=== PATIENT | female | born 1970 | race Caucasian/White ===

== ENCOUNTER → 2022-04-16 | Outpatient (CLI) | payer MEDICAID, SELFPAY ==
--- NOTE | 2022-04-16 16:43 | MRI_ITS ---
EXAM: MR LUMBAR SPINE WITHOUT INTRAVENOUS CONTRAST CLINICAL INDICATION: pain TECHNIQUE: Multiplanar and multisequence MR images of the lumbar spine without intravenous contrast. This report was created using [employer] report generation technology. COMPARISON: Lumbar spine radiographs March 29, 2022 FINDINGS: VERTEBRAE: Mild levoscoliosis of the lumbar spine again noted. Vertebral body heights are preserved. No spondylolisthesis. SPINAL CORD: Unremarkable. Normal position and signal intensity of the conus medullaris. SOFT TISSUES: Unremarkable. DISCS/SPINAL CANAL/NEURAL FORAMINA: L1-2: Broad-based disc protrusion, ligamentous redundancy and facet arthropathy result in mild spinal stenosis and mild narrowing of the right neural foramen. L2-3: Broad-based disc protrusion, ligamentous redundancy and facet arthropathy results in [id number] spinal stenosis and mild to moderate right and moderate left neural foraminal narrowing. L3-4: Significant disc space narrowing. Mild posterior bony hypertrophy, ligamentous redundancy and facet arthropathy results in mild to moderate spinal stenosis and moderate right neural foraminal stenosis. L4-5: Prominent disc space narrowing. Mild disc bulging, ligamentous redundancy and left facet arthropathy results in moderate left neural foraminal narrowing. No significant impingement on the thecal sac. Normal spinal canal and lateral recesses. L5-S1: No disc protrusion. Bilateral facet arthropathy without impingement on the spinal canal or neural foramina. MRI/Spine Lumbar (Routine) IMPRESSION: Multilevel spinal and neural foraminal narrowing related to disc degeneration and facet arthropathy. Electronically Signed: Terell Boudreaux MD at 9:38 EDT ,
== END | disposition home or self-care (01) ==
LOC: MRI 16:43
PROVIDERS: Visit Provider Orthopaedic Surgery
DX: M54.17 Radiculopathy, lumbosacral region (principal); M54.50 Low back pain, unspecified
CPT/HCPCS: 72148

== ENCOUNTER → 2022-08-09 | Outpatient (CLI) | payer MEDICAID, SELFPAY ==
[2022-08-09 13:20] LABS: Amphetamine Urine VISTA POSITIVE (<1000 ng/mL); Barbiturate Urine VISTA NEGATIVE (< 200 ng/mL); Benzodiazepine Urine VISTA NEGATIVE (< 200 ng/mL); Cocaine Urine VISTA NEGATIVE (< 300 ng/mL); Ecstacy Urine VISTA NEGATIVE (< 500 ng/mL); Methadone Urine VISTA NEGATIVE (< 300 ng/mL); PCP Urine VISTA NEGATIVE (< 25 ng/mL); THC Urine VISTA NEGATIVE (< 50 ng/mL); Vista UDS pH Range 5
== END | disposition home or self-care (01) ==
PROVIDERS: Visit Provider Anesthesiology Pain Medicine
DX: F11.20 Opioid dependence, uncomplicated (principal)
CPT/HCPCS: 80307

== ENCOUNTER → 2023-10-30 | Outpatient (CLI) | payer MEDICAID, SELFPAY ==
[2023-10-30 15:50] LABS: Amphetamine Urine VISTA POSITIVE (<1000 ng/mL); Barbiturate Urine VISTA POSITIVE (< 200 ng/mL); Benzodiazepine Urine VISTA NEGATIVE (< 200 ng/mL); Cocaine Urine VISTA NEGATIVE (< 300 ng/mL); Ecstacy Urine VISTA NEGATIVE (< 500 ng/mL); Methadone Urine VISTA NEGATIVE (< 300 ng/mL); PCP Urine VISTA NEGATIVE (< 25 ng/mL); THC Urine VISTA NEGATIVE (< 50 ng/mL); Vista UDS pH Range 5
== END | disposition home or self-care (01) ==
PROVIDERS: Referring Provider Anesthesiology Pain Medicine; Visit Provider Anesthesiology Pain Medicine
DX: F11.20 Opioid dependence, uncomplicated (principal)
CPT/HCPCS: 80307